=== PATIENT | male | born 1945 | race African-American/Black ===

== ENCOUNTER 2020-08-09 00:14 | Emergency (ER) | payer MEDICARE ==
[2020-08-09 01:51] LABS: BASOPHIL 0.7 % (0-2); EOSINOPHIL 1.9 % (0-7); HCT 40.3 % (42.0-52.0); HGB 13.1 g/dl (13.2-18.0); LYMPHOCYTE 24.2 % (15-48); MCH 32.3 pg (25.0-31.0); MCHC 32.5 g/dL (32.0-36.0); MCV 99.5 fL (78.0-100.0); MONOCYTE 9.6 % (0-12); NEUTROPHIL 63.1 % (41-80); NRBC 0; PLT 229 K/uL (150-400); RBC 4.05 M/uL (4.70-6.00); RDW 14.6 % (11.5-14.0); WBC 5.8 K/uL (4.0-10.5)
[2020-08-09 02:04] LABS: ALBUMIN 3.3 g/dL (3.4-5.0); BUN/CREAT RATIO (CALC) 17.7 RATIO; CREATININE 1.41 mg/dL (0.67-1.17); GLOBULIN (CALCULATION) 3.5 g/dL; POTASSIUM 4.3 mmol/L (3.5-5.1); TOTAL PROTEIN 6.8 g/dL (6.4-8.2)
[2020-08-09 02:07] LABS: LACTIC ACID 1.9 mmol/L (0.4-1.9)
[2020-08-09 03:49] LABS: INR 2.72 (0.9-1.2); PROTHROMBIN TIME 27.5 SECONDS (11.4-13.6)
[2020-08-09 03:50] LABS: PTT 46.2 SECONDS (22.2-34.7)
[2020-08-09 03:55] LABS: BILIRUBIN NEGATIVE (NEGATIVE); BLOOD NEGATIVE Ery/uL (NEGATIVE); CLARITY CLEAR (CLEAR); COLOR YELLOW (YELLOW); GLUCOSE (U) NORMAL (NORMAL); LEUKOCYTES NEGATIVE Leu/uL (NEGATIVE); NITRITE NEGATIVE (NEGATIVE); PROTEIN NEGATIVE (NEGATIVE); SPECIFIC GRAVITY 1.015 (1.001-1.030); UROBILINOGEN 0.2 mg/dL (0.2-1.0); pH 6.5 (5.0-9.0)
[2020-08-09 04:11] LABS: CORONAVIRUS 2019 SARS-COV-2 NEGATIVE (NEGATIVE); INFLUENZA A NAA NEGATIVE (NEGATIVE)
[2020-08-09] MEDS ORDERED: LASIX20 MG PO (05:36)
[2020-08-09] MEDS ORDERED: AUGMENTIN 875-1 EACH PO (05:36)
== END 2020-08-09 05:42 | disposition home or self-care (01) ==
LOC: FER 00:14
PROVIDERS: Emergency Medicine Emergency Medical Services
DX: J81.0 Acute pulmonary edema (principal); R91.8 Other nonspecific abnormal finding of lung field; J90 Pleural effusion, not elsewhere classified; I48.91 Unspecified atrial fibrillation; E11.9 Type 2 diabetes mellitus without complications; I10 Essential (primary) hypertension; R60.0 Localized edema; F17.200 Nicotine dependence, unspecified, uncomplicated; Z85.850 Personal history of malignant neoplasm of thyroid; Z79.84 Long term (current) use of oral hypoglycemic drugs; Z79.01 Long term (current) use of anticoagulants; Z20.822 Contact with and (suspected) exposure to COVID-19
CPT/HCPCS: 36415; 71045; 80053; 81003; 83605; 83880; 84145; 84484; 85025; 85610; 85730; 87040; 87088; 93005; J1940; J2543; U0002